=== PATIENT | male | born 1950 | race Caucasian/White ===

== ENCOUNTER 2020-12-15 15:17 | Emergency (ER) | payer MEDICARE ==
[~2020-12-15] VITALS: Ht 193 cm; Wt 79.5 kg
[2020-12-15 17:40] VITALS: BP 142/94
== END 2020-12-15 18:00 | disposition home or self-care (01) ==
LOC: EMS 15:17
DX: F11.23 Opioid dependence with withdrawal (principal); F15.10 Other stimulant abuse, uncomplicated; F17.210 Nicotine dependence, cigarettes, uncomplicated; F14.90 Cocaine use, unspecified, uncomplicated; F12.90 Cannabis use, unspecified, uncomplicated; Z76.0 Encounter for issue of repeat prescription
CPT/HCPCS: 99281; Z7502